=== PATIENT | male | born 1980 | race Caucasian/White ===

== ENCOUNTER 2017-09-13 10:19 | Emergency (ER) | payer BC ==
[2017-09-13] MEDS ORDERED: HYDROmorphone 0.5 MG/0.5 ML SYRINGE IVPUSH ONE (10:50)
[2017-09-13] MEDS ORDERED: Metoclopramide 10 MG/2 ML SDV IVPUSH ONE (10:50)
--- NOTE | 2017-09-13 10:54 | EDM.PDOC ---
ED HPI GENERAL MEDICAL PROBLEM - General Chief Complaint: Chest Pain Stated Complaint: CHEST PAIN Time Seen by Provider: 09/13/17 10:49 Source of Information: Reports: Patient History Limitations: Reports: No Limitations - History of Present Illness INITIAL COMMENTS - FREE TEXT/NARRATIVE: 36-year-old male reports to the ED due to development of sudden onset of central chest pain which is strongly pleuritic. He presents with splinting respirations. Pain does not radiate through his back but he feels it up and his left lateral neck and left shoulder. States he has mildly diaphoretic. He did not eat any breakfast this morning. He's not been recently ill with any cough or sputum production. States he had a similar problem develop about a month ago and was seen in [place] at which time no problems were identified. Denies any recent chest wall trauma. He is a smoker 3 cores to a pack per day. Drinks alcohol on a daily basis usually one or 2 drinks. Denies any nausea or vomiting. He states he does not suffer from gastroesophageal reflux disease and does not use Tums or Rolaids. Onset: Today Onset Date: 09/13/17 Onset Time: 08:50 Duration: Minutes:, Getting Worse Location: Reports: Chest (Central chest pain.) Quality: Reports: Sharp, Stabbing Severity: Severe Improves with: Reports: None (9 out of 10.) Worsens with: Reports: None Context: Reports: Other (On tennis occurrence.). Denies: Activity, Exercise, Lifting, Sick Contact, Trauma Associated Symptoms: Reports: Chest Pain, Shortness of Breath. Denies: Confusion, Cough, cough w sputum, Diaphoresis, Fever/Chills, Headaches, Loss of Appetite, Malaise, Rash, Seizure, Syncope Treatments [employer]: Reports: Other (see below) (None.) Chest Pain Score (Numeric/FACES): 8 - Related Data Allergies Allergy/AdvReac Type Severity Reaction Status Date / Time No Known Allergies Allergy Verified 09/13/17 10:37 Home Meds: Home Meds Diclofenac Sodium [Voltaren] 50 mg PO BID #24 tab.ec 09/13/17 [Rx] predniSONE [Deltasone] 20 mg PO ASDIRECTED #15 tablet 09/13/17 [Rx] Social & Family History - Tobacco Use Smoking Status *Q: Current Every Day Smoker Tobacco Use Within Last Twelve Months: Cigarettes (20 cigarettes daily) - Alcohol Use Alcohol Use History: Yes Days Per Week of Alcohol Use: 7 Days Per Week of Alcohol Use Comment: She has 1-2 drinks every evening. Amount not quantified. ED ROS GENERAL - Review of Systems Review Of Systems: See Below Constitutional: Denies: Fever, Chills, Malaise, Decreased Appetite HEENT: Reports: No Symptoms Respiratory: Reports: Shortness of Breath, Pleuritic Chest Pain (Heart a 2 hours ago), Cough. Denies: Wheezing, Sputum Cardiovascular: Reports: Chest Pain. Denies: Blood Pressure Problem, Claudication, Dyspnea on Exertion, Edema, Lightheadedness (History of present illness ), Orthopnea Endocrine: Reports: No Symptoms GI/Abdominal: Reports: No Symptoms : Reports: No Symptoms Musculoskeletal: Reports: No Symptoms Skin: Reports: No Symptoms Neurological: Reports: No Symptoms Psychiatric: Reports: No Symptoms Hematologic/Lymphatic: Reports: No Symptoms Immunologic: Reports: No Symptoms ED EXAM, GENERAL - Physical Exam Exam: See Below Course - Vital Signs Last Recorded V/S: Last Vital Signs Temp 36.6 C 09/13/17 10:28 Pulse 65 09/13/17 10:28 Resp 20 09/13/17 10:28 BP 123/89 09/13/17 10:28 Pulse Ox 100 09/13/17 10:28 - Orders/Labs/Meds Orders: Active Orders 24 hr Category Date Time Status EKG Documentation Completion [RC] ASDIRECTED Care 09/13/17 10:46 Active EKG Documentation Completion [RC] STAT Care 09/13/17 10:51 Active Dextrose 5%-0.9% NaCl [Dextrose 5%-Normal Saline] 1,000 Med 09/13/17 11:00 Active ml IV ASDIRECTED Ketorolac [Toradol] Med 09/13/17 11:00 Active 30 mg IVPUSH ONETIME Sodium Chloride 0.9% [Normal Saline] 100 ml Med 09/13/17 12:30 Active IV ASDIRECTED EKG 12 Lead [EK] Stat Ther 09/13/17 10:45 Ordered Medication Orders Dextrose/Sodium Chloride (Dextrose 5%-Normal Saline) 1,000 mls @ 150 mls/hr IV ASDIRECTED KURT Last Admin: 09/13/17 11:05 Dose: 150 mls/hr Sodium Chloride (Normal Saline) 100 mls @ 60 mls/hr IV ASDIRECTED KURT Last Admin: 09/13/17 12:35 Dose: 60 mls/hr Ketorolac Tromethamine (Toradol) 30 mg IVPUSH ONETIME KURT Last Admin: 09/13/17 11:08 Dose: 30 mg Labs: Laboratory Tests 09/13/17 09/13/17 09/13/17 Range/Units 10:40 10:40 10:40 WBC 9.09 H (4.23-9.07) K/mm3 RBC 4.44 L (4.63-6.08) M/mm3 Hgb 14.7 (13.7-17.5) gm/L Hct 43.0 (40.1-51.0) % MCV 96.8 H (79.0-92.2) fl MCH 33.1 H (25.7-32.2) pg MCHC 34.2 (32.2-35.5) g/dl RDW Std Deviation 46.2 H (35.1-43.9) fL Plt Count 239 (163-337) K/mm3 MPV 10.1 (9.4-12.3) fl Neutrophils % (Manual) 77 H (40-60) % Band Neutrophils % 0 (0-10) % Lymphocytes % (Manual) 16 L (20-40) % Atypical Lymphs % 0 % Monocytes % (Manual) 6 (2-10) % Eosinophils % (Manual) 1 (0.8-7.0) % Basophils % (Manual) 0 L (0.2-1.2) Platelet Estimate Adequate RBC Morph Comment Normal PT 10.7 (9.5-12.1) SECONDS INR 0.98 APTT 26 (24-31) SECONDS D-Dimer, Quantitative (0.19-0.50) mg/L Sodium 140 (136-145) mEq/L Potassium 4.2 (3.5-5.1) mEq/L Chloride 104 (98-107) mEq/L Carbon Dioxide 29 (21-32) mEq/L Anion Gap 11.2 (5-15) BUN 13 (7-18) mg/dL Creatinine 0.8 (0.7-1.3) mg/dL Est Cr Clr Drug Dosing 101.39 mL/min Estimated GFR (MDRD) > 60 (>60) mL/min BUN/Creatinine Ratio 16.3 (14-18) Glucose 126 H (74-106) mg/dL Calcium 9.3 (8.5-10.1) mg/dL Total Bilirubin 0.6 (0.2-1.0) mg/dL AST 21 (15-37) U/L ALT 27 (16-63) U/L Alkaline Phosphatase 133 H (46-116) U/L CK-MB (CK-2) < 0.5 (0-3.6) ng/ml Troponin I < 0.017 (0.00-0.056) ng/mL Total Protein 7.7 (6.4-8.2) g/dl Albumin 3.9 (3.4-5.0) g/dl Globulin 3.8 gm/dL Albumin/Globulin Ratio 1.0 (1-2) Lipase 96 (73-393) U/L 09/13/17 Range/Units 10:40 WBC (4.23-9.07) K/mm3 RBC (4.63-6.08) M/mm3 Hgb (13.7-17.5) gm/L Hct (40.1-51.0) % MCV (79.0-92.2) fl MCH (25.7-32.2) pg MCHC (32.2-35.5) g/dl RDW Std Deviation (35.1-43.9) fL Plt Count (163-337) K/mm3 MPV (9.4-12.3) fl Neutrophils % (Manual) (40-60) % Band Neutrophils % (0-10) % Lymphocytes % (Manual) (20-40) % Atypical Lymphs % % Monocytes % (Manual) (2-10) % Eosinophils % (Manual) (0.8-7.0) % Basophils % (Manual) (0.2-1.2) Platelet Estimate RBC Morph Comment PT (9.5-12.1) SECONDS INR APTT (24-31) SECONDS D-Dimer, Quantitative 1.08 H (0.19-0.50) mg/L Sodium (136-145) mEq/L Potassium (3.5-5.1) mEq/L Chloride (98-107) mEq/L Carbon Dioxide (21-32) mEq/L Anion Gap (5-15) BUN (7-18) mg/dL Creatinine (0.7-1.3) mg/dL Est Cr Clr Drug Dosing mL/min Estimated GFR (MDRD) (>60) mL/min BUN/Creatinine Ratio (14-18) Glucose (74-106) mg/dL Calcium (8.5-10.1) mg/dL Total Bilirubin (0.2-1.0) mg/dL AST (15-37) U/L ALT (16-63) U/L Alkaline Phosphatase (46-116) U/L CK-MB (CK-2) (0-3.6) ng/ml Troponin I (0.00-0.056) ng/mL Total Protein (6.4-8.2) g/dl Albumin (3.4-5.0) g/dl Globulin gm/dL Albumin/Globulin Ratio (1-2) Lipase (73-393) U/L Meds: Medications Generic Name Dose Route Start Last Admin Trade Name Freq PRN Reason Stop Dose Admin Dextrose/Sodium Chloride 1,000 mls @ 150 mls/hr 09/13/17 11:00 09/13/17 11:05 Dextrose 5%-Normal Saline IV 150 mls/hr ASDIRECTED KURT Administration Sodium Chloride 100 mls @ 60 mls/hr 09/13/17 12:30 09/13/17 12:35 Normal Saline IV 60 mls/hr ASDIRECTED KURT Administration Ketorolac Tromethamine 30 mg 09/13/17 11:00 09/13/17 11:08 Toradol IVPUSH 30 mg ONETIME KURT Administration Discontinued Medications Generic Name Dose Route Start Last Admin Trade Name Freq PRN Reason Stop Dose Admin Hydromorphone HCl 0.5 mg 09/13/17 10:50 09/13/17 11:06 Dilaudid IVPUSH 09/13/17 10:51 0.5 mg ONETIME ONE Administration Iopamidol 100 ml 09/13/17 12:19 09/13/17 12:35 [id number] (76%) IVPUSH 09/13/17 12:20 100 ml ONETIME ONE Administration Lorazepam 0.5 mg 09/13/17 11:07 09/13/17 11:26 Ativan IVPUSH 09/13/17 11:08 0.5 mg ONETIME ONE Administration Metoclopramide HCl 7.5 mg 09/13/17 10:50 09/13/17 11:06 Reglan IVPUSH 09/13/17 10:51 7.5 mg ONETIME ONE Administration Sodium Chloride 10 ml 09/13/17 12:19 09/13/17 12:35 Saline Flush FLUSH 09/13/17 12:20 10 ml ONETIME ONE Administration - Radiology Interpretation Free Text/Narrative:: 36-year-old male attends the ED with sudden onset of severe pleuritic central chest pain that radiates up towards his left neck. States he was sitting at work when this occurred. Pain was bad enough that he cannot take a full deep breath at this time. Does describes the pain is very sharp and stabbing. No history of gastric esophageal reflux disease. No cough or sputum production although he smokes 20 cigarettes daily. Afebrile time of exam. Examination shows splinting respirations with decreased air entry to the left lung more so than the right. No rhonchi or rubs were identified. ECG shows sinus rhythm with no signs of ischemia. Plan IV fluids at 150 mils per hour. Will be D5 normal saline. Patient has not eaten today yet. He would be given Toradol 30 mg IV with Dilaudid 0.5 mg IV and Reglan 7.5 mg IV. - Re-Assessments/Exams Free Text/Narrative Re-Assessment/Exam: 09/13/17 11:31 chest x-ray done portably shows mildly hyperinflated lung case. They are clear and there is no evidence of a pneumothorax. 09/13/17 12:10 Labs are back. White count is 9.09. Hemoglobin is 14.7 with hematocrit of 43.0. Platelet count is 239,000. Differential shows 77% neutrophils and no bands. PT was 10.7 with an INR of 0.98. PTT is 26. D-dimer is slightly elevated at 1.08. Sodium is 140 with a potassium of 4.2. Chloride is 104 bicarbonate 29. Anion gap is 11.2. BUN is 13 with a creatinine of 0.8. Glucose is 126. Calcium is 9.3. Liver function is normal other than slightly elevated alkaline phosphatase at 133. CK-MB fraction is less than 0.5. Troponin I is less than 0.017. Lipase is normal at 96. Due to the elevated d-dimer he will require CT pulmonary angiogram.. Discussed the findings with the patient and he is agreeable to pursue this avenue of investigation. 09/13/17 13:20 CT pulmonary angiogram carried out. No evidence of PE was identified. Patient reassured in this regard. He remains pain-free. I will going to place him therefore on a short course of prednisone 20 mg a.m. and supper for 5 days and then 1 tablet in the morning only for another 5 days. Also Voltaren 80 mg twice daily for 10 days to reduce pain and inflammation. Suspect viral pleuritis. Patient be given a note to excuse him from the workplace today. He will take above medications with food. Follow up as needed. Departure - Departure Time of Disposition: 13:21 Disposition: Home, Self-Care 01 Condition: Fair Clinical Impression: Pleuritic chest pain, Non-cardiac chest pain Prescriptions: Diclofenac Sodium [Voltaren] 50 mg PO BID #24 tab.ec predniSONE [Deltasone] 20 mg PO ASDIRECTED #15 tablet Instructions: Nonspecific Chest Pain, [id number] Referrals: PCP,None [Primary Care Provider] - Forms: ED Department Discharge, ED Return to Work/School Form Additional Instructions: Evaluation the emergency room today in regards to development of severe sharp stabbing or pleuritic chest pains this morning while at work. Apparently he suffered a similar previous episode but not as severe about 6 weeks ago. No positive findings were identified at that time. Complete cardiac workup carried out today reveals no signs of heart related illness. Chest x-ray was normal. ECG showed is normal. Lab work showed no evidence of any heart involvement. Lab work proved to be completely normal other than an elevated d-dimer at 1.08. This is a marker for blood clotting. Therefore concerns for a possible blood clot in your lung existed. CT of the chest with IV contrast was carried out and did not reveal any signs of blood clots within your lung. Therefore your pain is what we call pleurisy pain. This means there is a nonspecific viral inflammation of your lung lining causing sharp stabbing intermittent pains. And also sometimes be caused by muscle spasms in between the ribs which make it very difficult to breathe. Suggest treatment with a short course of penicillin 20 mg with breakfast and supper for 5 days and then once in the morning only for another 5 days to reduce inflammation. Also Voltaren 50 mg twice daily for 8 days to reduce pain and inflammation. Follow-up with personal physician or return to the ED if any further problems occur. Of the above medications are to be taken with food in her stomach. - My Orders Last 24 Hours: My Active Orders 09/13/17 10:45 EKG 12 Lead [EK] Stat 09/13/17 10:46 EKG Documentation Completion [RC] ASDIRECTED 09/13/17 10:51 EKG Documentation Completion [RC] STAT 09/13/17 11:00 Dextrose 5%-0.9% NaCl [Dextrose 5%-Normal Saline] 1,000 ml IV ASDIRECTED Ketorolac [Toradol] 30 mg IVPUSH ONETIME 09/13/17 12:30 Sodium Chloride 0.9% [Normal Saline] 100 ml IV ASDIRECTED - Assessment/Plan Last 24 Hours: My Active Orders 09/13/17 10:45 EKG 12 Lead [EK] Stat 09/13/17 10:46 EKG Documentation Completion [RC] ASDIRECTED 09/13/17 10:51 EKG Documentation Completion [RC] STAT 09/13/17 11:00 Dextrose 5%-0.9% NaCl [Dextrose 5%-Normal Saline] 1,000 ml IV ASDIRECTED Ketorolac [Toradol] 30 mg IVPUSH ONETIME 09/13/17 12:30 Sodium Chloride 0.9% [Normal Saline] 100 ml IV ASDIRECTED
[2017-09-13] MEDS ORDERED: Ketorolac 30 MG/ML SDV IVPUSH SCH (11:00)
[2017-09-13] MEDS ORDERED: Dextrose 5%-0.9% NaCl 1,000 ML IV SCH (11:00)
[2017-09-13] MEDS ORDERED: LORazepam 2 MG/ML SDV IVPUSH ONE (11:07)
--- NOTE | 2017-09-13 11:43 | CR ---
Chest: Frontal view of the chest was obtained. Comparison: No previous chest x-ray. Heart size and mediastinum are within normal limits. Lungs are clear without acute parenchymal change. Bony structures are unremarkable. Impression: 1. Nothing acute is seen on frontal chest x-ray. Diagnostic code #1
[2017-09-13] MEDS ORDERED: Iopamidol 755 Mg/ML 100 ML Bottle IVPUSH ONE (12:19)
[2017-09-13] MEDS ORDERED: Sodium Chloride 0.9% 10 ML Syringe FLUSH ONE (12:19)
[2017-09-13] MEDS ORDERED: Sodium Chloride 0.9% 100 ML IV SCH (12:30)
--- NOTE | 2017-09-13 13:06 | CT ---
CT chest Technique: Multiple axial sections through the chest were obtained. Intravenous contrast was utilized. Study was performed as a pulmonary angiogram protocol. Comparison: Prior chest x-ray performed earlier on the same day (10:57 AM.) Findings: Pulmonary arteries are well-opacified. No filling defects are seen to indicate pulmonary embolism. Mediastinum and hilar regions show no adenopathy or mass. No pericardial thickening is seen. Small portion of the visualized upper abdominal structures are within normal limits. Lungs are clear with no acute parenchymal change. Small subpleural blebs are seen within both upper lungs. Bone window settings appear within normal limits for the patient's age. Impression: 1. No findings of pulmonary embolism. Nothing acute is seen on CT study of the chest. Diagnostic code #1
== END 2017-09-13 13:39 | disposition home or self-care (01) ==
LOC: JD.ED 10:19
DX: R07.81 Pleurodynia (principal); F17.210 Nicotine dependence, cigarettes, uncomplicated
CPT/HCPCS: 36415; 71045; 71275; 80053; 82553; 83690; 84484; 85007; 85027; 85379; 85610; 85730; 93005; 99285; J1170; J1885; J2060; J2765; J7030; J7042; J7050; Q9967